=== PATIENT | female | born 1945 | race Caucasian/White ===

== ENCOUNTER 2018-07-29 11:03 | Inpatient (IN) ==
--- NOTE | 2018-07-13 12:41 | Anesthesiology Consultation ---
Date of Service July 13, 2018 Assessment & Plan (1) Encounter for pre-operative examination: Chart Review Chart Review: Acceptable Risk for Surgery and Patient seen in Pre Admission Testing Teaching & Discussion Pre-Anesthesia Teaching/Discussion Notes: Instructed NPO after midnight before surgery,except medications with 15 cc of water. Medication instructions provided according to the PAT guidelines. History Surgery Operation Date: 07/29/18 13:15 Proposed Procedures p L4-l5, L5-S1 Posterior Lumbar Decompression and Interbody Fusion - Anish De La Torre DO Height/Weight Height: 4 ft 11.5 in Weight: 55.1 kg Allergies Allergy/AdvReac Type Severity Reaction Status Date / Time adhesive tape Allergy Unknown Rash Verified 07/06/18 10:35 Medications Home Medications Medication Instructions Recorded Confirmed Last Taken amlodipine 5 mg PO QAM 07/06/18 07/06/18 07/06/18 atorvastatin 20 mg PO PM 07/06/18 07/13/18 07/05/18 gabapentin 400 mg PO TID 07/06/18 07/06/18 07/06/18 lisinopril 10 mg PO QAM 07/06/18 07/06/18 07/06/18 oxybutynin chloride 10 mg PO QPM 07/06/18 07/06/18 07/05/18 Past Medical History Medical History Arthritis CAD (coronary artery disease) MID LAD SERIAL 60% LESIONS PER 2015 CARDIAC CATH (NO APPRECIABLE CHANGE SINCE 2006 PER REPORT) Hiatal hernia Hyperlipidemia Hypertension Urinary incontinence ON OXYBUTYNIN Past Family History Family History Father Family history of throat cancer Past Surgical History Surgical History History of cardiac catheterization 2006, 2014= NO STENTS History of cataract extraction B/L History of colonoscopy History of toe surgery BILAT BIG TOES/ARTHRITIS REMOVED History of tubal ligation Past Anesthesia History No Hx of Anesthesia Complications (EXCEPT PONV X1 ) and No Family Hx of Anesthesia Complications History of PONV Yes (X1 EPISODE) Motion Sickness Screening History of Motion Sickness: No Social History Smoking Status: Never smoker Do You Dip or Chew Tobacco: No Hx Alcohol Use: No Hx Substance Use: No substance use type: does not use Exercise / Class Metabolic Activity II 4-5 Yardwork/Stairs/Walk up hill (USES CANE PRN) Review of Systems Patient denies chest pain, shortness of breath, dyspnea on exertion, cough, wheezing, palpitations. Physical Exam Vital Signs VITALS BP 126/79 P 72 TEMP 98.2 SP02 98%RA RESP 18 Full neck and c-spine range of motion. Full TMJ range of motion. TMD 3 finger breaths Mallampati Score 3 Dentition: intact, several crown on molars Lungs: clear throughout to auscultation Cardiac: regular rate and rhythm, I/ systolic murmur Spine: normal Carotid arteries: negative bruit Extremities: no edema Testing Electrocardiogram Date: 07/13/18 NSR at 66bpm. LAD. NS IVCD. Chest X-Ray Date: 07/13/18 Findings: + NAD There is a air-containing retrocardiac opacity consistent with a hiatal hernia. Cardiac Catheterization Date: 09/03/14 Mid LAD serial 60% lesions (not appreciably changed since 2006 cardiac cath). Medical management recommended. Laboratory Results 07/13/18 12:55 Blood Type A Positive 07/13/18 12:55 Antibody Screen NEGATIVE 07/13/18 12:55 PT 10.6 Seconds (9.0-12.0) 07/13/18 12:55 INR 1.1 (0.9-1.1) 07/13/18 12:55 APTT 24.6 Seconds (21.0-31.0) 07/13/18 12:55 Urine Color Yellow 07/13/18 12:55 Urine Appearance Clear (Clear) 07/13/18 12:55 Urine pH 6.5 (4.5-7.5) 07/13/18 12:55 Ur Specific [place] 1.011 (1.000-1.030) 07/13/18 12:55 Urine Protein Negative (Negative) 07/13/18 12:55 Urine Glucose (UA) Negative (Negative) 07/13/18 12:55 Urine Ketones Negative (Negative) 07/13/18 12:55 Urine Nitrite Negative (Negative) 07/13/18 12:55 Ur Leukocyte Esterase Negative (Negative) 07/13/18 12:55 07/06/18 SODIUM 139 POTASSIUM 4.2 CHLORIDE 99 CO2 28 BUN 16 CREATININE 0.9 GLUCOSE 91
--- NOTE | 2018-07-13 12:52 | PAT Medication Instructions ---
Medication Instructions Date of Service July 13, 2018 Home Medications amlodipine 5 mg PO QAM atorvastatin 40 mg PO PM gabapentin 400 mg PO TID lisinopril 10 mg PO QAM oxybutynin chloride 10 mg PO QPM DO NOT take the morning of surgery lisinopril 10 mg PO QAM Take morning of surgery With a small sip of water, OTHERWISE NOTHING TO EAT OR DRINK AFTER MIDNIGHT: amlodipine 5 mg PO QAM gabapentin 400 mg PO TID Take evening before surgery atorvastatin 40 mg PO PM gabapentin 400 mg PO TID oxybutynin chloride 10 mg PO QPM Other Notes If you have any questions please call us at [phone] or [phone] or [phone] or [phone]
[2018-07-13 13:27] LABS: Basophils # (auto) 0.07 K/uL (0-0.2); Basophils % (auto) 1.2 %; Eosinophils # (auto) 0.11 K/uL (0-0.5); Eosinophils % (auto) 1.9 %; Hemoglobin 12.5 g/dL (12.0-16.0); Immature Granulocytes # (auto) 0.01 K/uL (0.00-0.02); Immature Granulocytes % (auto) 0.2 %; Lymphocytes # (auto) 1.09 K/uL (1.2-3.4); Lymphocytes % (auto) 18.9 %; Mean Corpuscular Hgb Conc 33.8 g/dL (32-36); Mean Corpuscular Volume 93.2 fL (80-100); Mean Platelet Volume 9.4 fL (7.4-10.4); Monocytes # (auto) 0.46 K/uL (0.11-0.59); Neutrophils # (auto) 4.04 K/uL (1.4-6.5); Neutrophils % (auto) 69.8 %; Platelet Count 279 K/uL (130-400); RDW Coefficient of Variation 12.4 % (11.5-14.5); RDW Standard Deviation 42.5 fL (36.4-46.3); Red Blood Count 3.97 M/uL (4.2-5.4); White Blood Count 5.78 K/uL (4.8-10.8)
[2018-07-13 13:39] LABS: Appearance Urine Clear (Clear); Bilirubin Urine Negative (Negative); Color Urine Yellow; Glucose Urine UA Negative (Negative); Ketones Urine Negative (Negative); Leukocyte Esterase Urine Negative (Negative); Nitrite Urine Negative (Negative); Protein Urine Negative (Negative); Specific Gravity Urine 1.011 (1.000-1.030); Urobilinogen Urine Negative (Negative); pH Urine 6.5 (4.5-7.5)
[2018-07-13 13:54] LABS: INR 1.1 (0.9-1.1); Partial Thromboplastin Ratio 0.9; Partial Thromboplastin Time 24.6 Seconds (21.0-31.0); Prothrombin Time 10.6 Seconds (9.0-12.0)
--- NOTE | 2018-07-13 13:54 | XRay Report ---
XR chest Pre-admission PA/Lat CLINICAL HISTORY: Preoperative chest COMPARISON STUDY: No previous studies for comparison. FINDINGS: The cardiac and mediastinal contours are normal. There is no evidence of focal pulmonary co nsolidation. There is no evidence of failure. No pleural effusions are visualized.[ There is a air-co ntaining retrocardiac opacity consistent with a hiatal hernia. IMPRESSION: No active disease in the chest. Electronically signed by: Jaren Martini M.D. 07/13/2018 1:52 PM
[~2018-07-29 11:03] MED LIST: ACETAMINOPHEN 500 MG TAB PO SCH; CeleBREX 200 MG CAP PO SCH; GABAPENTIN 300 MG PO SCH; LR 15ML/HR IV SCH
[2018-07-29] MEDS ORDERED: fentaNYL citrate 100 MCG/2 ML VIAL ONE ×5 (11:22→15:11)
[2018-07-29] MEDS ORDERED: MIDAZOLAM HCL 1 MG/ML 2ML VIAL ONE (11:22)
[2018-07-29] MEDS ORDERED: ROCURONIUM BROMIDE 10 MG/ML 5 ML VIAL ONE (11:23)
[2018-07-29] MEDS ORDERED: DEXAMETHASONE SOD INJ 4 MG/ML VIAL ONE (11:23)
[2018-07-29] MEDS ORDERED: GLYCOPYRROLATE 0.2 MG/ML VIAL ONE (11:23)
[2018-07-29] MEDS ORDERED: LIDOCAINE HCL 2% 2 ML VIAL/AMP(20MG/ML) INFIL ONE (11:23)
[2018-07-29] MEDS ORDERED: NEOSTIGMINE METHYLSULFATE 1 MG/ML 10ML VIAL ONE (11:23)
[2018-07-29] MEDS ORDERED: ONDANSETRON INJ 2 MG/ML 2 ML VIAL ONE (11:23)
[2018-07-29] MEDS ORDERED: PROPOFOL IV EMULSION 10 MG/ML 20 ML VIAL IV ONE (11:23)
[2018-07-29] MEDS ORDERED: HYDROmorphone INJ 2 MG/ML SYR/VIAL ONE (11:26)
--- NOTE | 2018-07-29 12:34 | History & Physical Bridge Note ---
Date of Service July 29, 2018 History & Physical Bridge Note I have examined the patient, reviewed the History & Physical and in the interval since the performance of the History & Physical I have noted the following changes of clinical significance: no changes noted
--- NOTE | 2018-07-29 12:35 | History & Physical Report ---
Date of Service July 29, 2018 Assessment & Plan (1) Neurogenic claudication due to lumbar spinal stenosis: Posterior lumbar decompression fusion and interbody fusion L4-5 L5-S1 Present on Admission?: Yes History of Present Illness Chief Complaint: Back and leg pain Primary Care Provider: Ellie Hollingsworth This is a 73-year-old female who presents with chronic persistent back and leg pain. After failing extensive course of nonoperative care is here for surgical intervention. Allergies Allergy/AdvReac Type Severity Reaction Status Date / Time adhesive tape Allergy Unknown Rash Verified 07/06/18 10:35 Home Medications Home Medications Medication Instructions Recorded Confirmed Type amlodipine 5 mg PO QAM 07/06/18 07/06/18 History atorvastatin 20 mg PO PM 07/06/18 07/13/18 History gabapentin 400 mg PO TID 07/06/18 07/06/18 History lisinopril 10 mg PO QAM 07/06/18 07/06/18 History oxybutynin chloride 10 mg PO QPM 07/06/18 07/06/18 History Past Med/Surg History Family History Father Family history of throat cancer Social History Current Living Situation: Spouse Other Information That Helps Us Care for You: No Feels Safe at Home: Yes Smoking Status: Never smoker Do You Dip or Chew Tobacco: No Hx Alcohol Use: No Hx Substance Use: No Beliefs That Will Affect Care: Gnosticist Gnosticist Beliefs: HINDU Preferred Language: Romansh Communication Ability: Effective Suture Winder Hand Required: No Physical Exam 2 Vital Signs (Past 24 Hours): Last Vital Signs Temp 36.7 C 07/29/18 11:44 Pulse 76 07/29/18 11:44 Resp 18 07/29/18 11:44 BP 150/80 H 07/29/18 11:44 Pulse Ox 98 07/29/18 11:44 Results & Data Medications Administered Acetaminophen (Tylenol) 1,000 mg PO PREOP [place] Stop: 07/29/18 18:00 Last Admin: 07/29/18 11:50 Dose: 1,000 mg Celecoxib (Celebrex) 200 mg PO PREOP [place] Stop: 07/29/18 18:00 Last Admin: 07/29/18 11:50 Dose: 200 mg Gabapentin (Neurontin) 300 mg PO PREOP [place] Stop: 07/29/18 18:00 Last Admin: 07/29/18 11:50 Dose: 300 mg Lactated Ringer's (Lr) 1,000 mls @ 15 mls/hr IV .Q24H [place] Stop: 07/30/18 05:59 Last Infusion: 07/29/18 12:21 Dose: Admin: 07/29/18 12:20 Dose: 15 mls/hr
[2018-07-29] MEDS ORDERED: ePHEDrine sulfate 50 MG/ML AMP IV PRN (12:45)
[2018-07-29] MEDS ORDERED: PROMETHAZINE HCL 6.25 MG in SODIUM CHLORIDE 0.9% 50 ML IV PRN (12:45)
[2018-07-29] MEDS ORDERED: fentaNYL citrate 100 MCG/2 ML VIAL IV PRN (12:45)
[2018-07-29] MEDS ORDERED: ATROPINE SULFATE 0.1 MG/ML 10ML SYR IV PRN (12:45)
[2018-07-29] MEDS ORDERED: ONDANSETRON INJ 2 MG/ML 2 ML VIAL IV PRN ×2 (12:45→17:14)
[2018-07-29] MEDS ORDERED: BACITRACIN INJ 50,000 UNIT VIAL ONE (12:47)
[2018-07-29] MEDS ORDERED: BUPIVACAINE/EPINEPHRINE 0.5% MPF 1:200,000 30 ML VIAL ONE (12:47)
[2018-07-29] MEDS: CEFAZOLIN 1000MG 1,000 MG/7.5 ML SYR IV SCH ×3 (13:00→21:11)
[2018-07-29] MEDS ORDERED: FLOSEAL HEMOSTATIC MATRIX 10ML TOP ONE (13:59)
[2018-07-29] MEDS ORDERED: ePHEDrine sulfate 50 MG/ML SYR ONE (14:41)
[2018-07-29] MEDS ORDERED: PHENYLEPHRINE 100MCG/ML 5ML SYR ONE (14:41)
[2018-07-29] MEDS ORDERED: KETOROLAC 30 MG/ML VIAL ONE (14:41)
[2018-07-29] MEDS ORDERED: PHENYLEPHRINE HCL 10 MG/ML VIAL ONE (14:43)
--- NOTE | 2018-07-29 15:12 | Operative Report ---
Post Operative Report Pre & Post Diagnosis Operation Date: 07/29/18 13:15 Pre-Op Diagnosis: Lumbar Spinal Stenosis with Neurogenic Claudication Post-Op Diagnosis: Lumbar Spinal Stenosis with Neurogenic Claudication Procedure Operation Date: 07/29/18 13:15 Actual Procedures #1 lumbar decompression bilateral medial facetectomies foraminotomies L3-4 L4-5 L5-S1. #2 posterior spinal fusion L3-4 L4-5 L5-S1. #3 placement posterior segmental instrumentation L4-5 L5-S1. #4 interbody fusion L4-5 per #5 placement of peek cage 9 x 22 mm at 045. #6 placement of local autograft in the posterior lateral gutters. #7 placement infuse collagen sponge, mass graft in the posterior gutters and ostial amp in the interbody space. Surgeon Anish De La Torre, DO Engine Lathe Set Up Operator Tool Warner Field Estimated Blood Loss 425 Findings Consistent with Post-Op Diagnosis Specimens None Description of Procedure Patient was met with preoperatively case discussed all questions addressed. After informed consent obtained patient was taken to the operative suite underwent intubation and placed in a prone position the Wes table on top of the Erick frame. All bony prominences well-padded eyes inspected to ensure no external pressure placed upon the bed at this point the lumbar spine was prepped and draped in normal sterile fashion. Sharp dissection with the assistance of Bovie cautery was performed down to and exposing the lamina and transverse of L3-L4-L5 and sacral ala bilaterally. From a caudal cephalad fashion complete laminectomy L5 L4 and L3 was performed addressing severe lateral recess and foraminal stenosis as well as evidence for lateral disc herniation L4-5 on the right. Complete decompression pedicle screws were placed in L4-L5 and S1 levels bilaterally with assistance of fluoroscopy. Process gina was placed. Through a transforaminal approach on the right complete discectomy of L4-[address] coated to subcortical bleeding bone and a 9 x 22 mm peek cage filled with osteo-amp bone graft tapped in position. Rods were then locked in final position bilaterally. The transverse process of L3-L4-L5 to subcortical bleeding bone. Infuse collagen sponge mass graft local autograft placed in the posterior gutters. 15 round YRIS drain inserted. The incision was then closed with 1 Vicryl fascia 2-0 Vicryl subtenons in 4 Monocryl for final skin closure. Steri-Strip sterile dressings placed. Patient will continue to PACU stable disc. Please note Warner Field present throughout the entire procedure involved in patient positioning complex portions of the surgery and final skin closure. I attest to the content of the Intraoperative Record and any orders documented therein. Any exceptions are noted below.
[2018-07-29] MEDS ORDERED: ESMOLOL HCL INJ 10 MG/ML 10ML VIAL IV ONE (15:28)
--- NOTE | 2018-07-29 15:35 | Fluoroscopy Report ---
FL lumbar spine 2-3V CLINICAL HISTORY: L4-L5 L5-S1 POSTERIOR LUMBAR DECOMPRESSION AND FUSION COMPARISON STUDY: None FLUOROSCOPY TIME: 2 minutes 3 seconds NUMBER OF FLUOROSCOPIC IMAGES: 3 FINDINGS: Fluoroscopic assistance for laminectomy and fusion of the low lumbar spine IMPRESSION: The above report was generated using voice recognition software. It may contain grammatical, syntax or spelling errors. Electronically signed by: Chris Orozco M.D. 07/29/2018 3:33 PM
[2018-07-29] MEDS ORDERED: LARYING-O-JET KIT (LTA) ONE (15:38)
[2018-07-29] MEDS ORDERED: ALBUMIN HUMAN 5% 12.5 GM/250 ML VIAL IV ONE (15:39)
--- NOTE | 2018-07-29 16:10 | Anesthesiology Progress Note ---
Date of Service July 29, 2018 Anesthesia Post Procedure Vital Signs Vital Signs: Temp Pulse Pulse Resp BP Pulse Ox 07/29/18 16:00 93 H 15 129/69 100 07/29/18 15:50 87 12 127/70 100 07/29/18 15:40 94 H 12 137/75 100 07/29/18 15:33 36.2 C L 93 H 16 135/79 100 07/29/18 11:44 36.7 C 76 18 150/80 H 98 Pain Intensity Lower Back: Pain Intensity: 0 Notes Mental Status: alert / awake / arousable Patient Amnestic to Procedure: Yes Nausea / Vomiting: adequately controlled Pain: adequately controlled Airway Patency, RR, SpO2: stable & adequate BP & HR: stable & adequate Hydration State: stable & adequate Anesthetic Complications: no major complications apparent
[2018-07-29] MEDS ORDERED: MAGNESIUM HYDROXIDE SUSP 30 ML UDC PO PRN (17:14)
[2018-07-29] MEDS ORDERED: TRAMADOL HCL 50 MG TABLET PO PRN (17:14)
[2018-07-29] MEDS ORDERED: PROMETHAZINE HCL 12.5 MG in SODIUM CHLORIDE 0.9% 50 ML IV PRN (17:14)
[2018-07-29] MEDS ORDERED: LACTATED RINGER'S 1,000 ML IV SCH (17:14)
[2018-07-29] MEDS ORDERED: LORazepam 0.5 MG/1 ML VIAL IV PRN (17:14)
[2018-07-29] MEDS ORDERED: ACETAMINOPHEN 1,000 MG/100 ML VIAL IV PRN (17:14)
[2018-07-29] MEDS ORDERED: OXYCODONE HCL IR 5 MG TAB (IMMEDIATE RELEASE) PO PRN (17:14)
[2018-07-29] MEDS ORDERED: LORazepam 0.5 MG TAB PO PRN (17:14)
[2018-07-29] MEDS ORDERED: DO NOT ADMINISTER FLU VACCINE PRN (17:14)
[2018-07-29] MEDS ORDERED: METOCLOPRAMIDE HCL INJ 5 MG/ML 2 ML VIAL IV PRN (17:14)
[2018-07-29] MEDS ORDERED: HYDROmorphone INJ 0.5 MG/0.5 ML SYR IV PRN (17:14)
[2018-07-29] MEDS ORDERED: ONDANSETRON 4 MG TAB PO PRN (17:14)
[2018-07-29] MEDS ORDERED: SOD PHOSPHATE/SOD BIPHOSPHATE ENEMA 132 ML BTL PR PRN (17:14)
[2018-07-29] MEDS ORDERED: BISACODYL 10 MG SUPP PR PRN (17:14)
[2018-07-29] MEDS ORDERED: ALUMINUM/MAGNESIUM SUSP 30 ML UDC PO PRN (17:14)
[2018-07-29] MEDS ORDERED: DO NOT ADMINISTER PNEUMOCOCCAL VACCINE PRN (17:14)
[2018-07-29] MEDS ORDERED: FAMOTIDINE 20 MG TAB PO PRN (17:14)
--- NOTE | 2018-07-29 19:34 | Hospitalist Consultation ---
Date of Consultation July 29, 2018 Assessment & Plan (1) Neurogenic claudication due to lumbar spinal stenosis: - POD#0, status post L4-L5, L5-S1 decompression fusion by Dr. De La Torre - activity and wound care orders as per ortho - pain control with bowel regimen - PT/OT - monitor H/H for acute blood loss anemia and transfuse blood products PRN - EBL 425 cc (2) Hypertension: -BP controlled, continue amlodipine and lisinopril (3) CAD (coronary artery disease): -Stable, no reports chest pain -Continue statin, resume aspirin when okay with spine orthopedics (4) DVT prophylaxis: -Teds/SCDs as per spine orthopedics Thank you for this consultation. We will follow the patient with you during their hospital stay. You can reach a member of the [facility] Hospitalist Team 11/01 via pager @ . Supervising Physician Co-Signing Physician Notes Attending Addendum: The patient was seen and examined She is a 73-year-old female with significant past medical history of hypertension, hyperlipidemia and nonobstructive CAD with status post lumbar decompression and fusion Complains of minimal pain at the lower back Denies any other symptoms On examination No apparent distress at rest Hemodynamically stable Unremarkable physical exam Labs and imaging studies reviewed Agree with assessment and plan as outlined above by Ana Paula Grace History of Present Illness Reason for Consultation: Postop medical management Requesting Physician: Dr. De La Torre Attending Physician: Dr. Grace History of Present Illness 73-year-old female who is status post L4-L5, L5-S1 decompression and fusion today by Dr. De La Torre. Postoperatively, the patient is doing well. She reports her pain is well controlled. She denies any numbness or tingling to the bilateral lower extremities. No chest pain or shortness of breath. She denies lightheadedness and dizziness. No abdominal pain or nausea. Bedoya catheter is in place draining clear yellow urine. Allergies Allergy/AdvReac Type Severity Reaction Status Date / Time adhesive tape Allergy Unknown Rash Verified 07/06/18 10:35 Home Medications Home Medications Medication Instructions Recorded Confirmed Type amlodipine 5 mg PO QAM 07/06/18 07/06/18 History atorvastatin 20 mg PO PM 07/06/18 07/13/18 History gabapentin 400 mg PO TID 07/06/18 07/06/18 History lisinopril 10 mg PO QAM 07/06/18 07/06/18 History oxybutynin chloride 10 mg PO QPM 07/06/18 07/06/18 History aspirin 81 mg PO DAILY 07/29/18 07/29/18 History ferrous sulfate 325 mg PO BID 07/29/18 07/29/18 History glucosamine sulfate [Glucosamine] 500 mg PO BID 07/29/18 07/29/18 History Patient History Medical History Hiatal hernia (Chronic) Microcytic anemia (Chronic) Hypertension (Chronic) CAD (coronary artery disease) (Chronic) cath 2014 showed nonobstructive CAD Dyslipidemia (Chronic) Arthritis (Inactive) CAD (coronary artery disease) (Inactive) MID LAD SERIAL 60% LESIONS PER 2015 CARDIAC CATH (NO APPRECIABLE CHANGE SINCE 2006 PER REPORT) Hypertension (Inactive) Urinary incontinence (Inactive) ON OXYBUTYNIN Surgical History History of cardiac catheterization (Chronic) 2006, 2014= NO STENTS History of tubal ligation (Chronic) History of toe surgery (Chronic) BILAT BIG TOES/ARTHRITIS REMOVED History of cataract extraction (Chronic) B/L History of colonoscopy (Inactive) Family History Father Family history of throat cancer Social History Current Living Situation: Spouse Other Information That Helps Us Care for You: No Feels Safe at Home: Yes Smoking Status: Never smoker Do You Dip or Chew Tobacco: No Hx Alcohol Use: No Hx Substance Use: No Beliefs That Will Affect Care: Yarsanism Yarsanism Beliefs: ROMAN CATHOLIC Preferred Language: Thai Communication Ability: Effective Assembly Worker Required: No Review of Systems ROS per HPI, all other systems reviewed and negative Physical Exam 2 Vital Signs (Past 24 Hours): Last Vital Signs Temp 36.4 C L 07/29/18 18:35 Pulse 95 H 07/29/18 18:35 Resp 16 07/29/18 18:35 BP 102/63 07/29/18 18:35 Pulse Ox 100 07/29/18 18:35 Constitutional: WD/WN, vitals as above Eyes: PERRL, conjunctivae normal, anicteric sclerae ENMT: external ear and nose normal, oropharynx normal Respiratory: normal respiratory effort, lungs clear to auscultation Cardiovascular: Rate/Rhythm: regular rate and regular rhythm Vessels: normal peripheral pulses Extremities: no edema Gastrointestinal (Abdomen): normal bowel sounds, soft, nontender, no hepatosplenomegaly Musculoskeletal: S/P back surgery, pedal pushes and pulls strong bilaterally Skin: no rashes, warm and dry Neurologic: PERRL, EOMI, accommodation nl, no face palsy, no dysarthria Psychiatric: A+Ox3, euthymic affect Genitourinary: Bedoay in place draining clear yellow urine
[2018-07-29] MEDS: ATORVASTATIN 20 MG TAB PO SCH (21:11)
[2018-07-29] MEDS: DOCUSATE SODIUM/SENNA 50/8.6MG TAB PO SCH (21:11)
[2018-07-29] MEDS: OXYBUTYNIN CHLORIDE XL 5 MG TABCR PO SCH (21:11)
[2018-07-29] MEDS: FERROUS SULFATE 325 MG TAB PO SCH (21:12)
[2018-07-29] MEDS: GABAPENTIN 400 MG CAP PO SCH (21:12)
[2018-07-30] MEDS: ACETAMINOPHEN 500 MG TAB PO PRN (03:34)
[2018-07-30] MEDS: POLYETHYLENE (MIRALAX) 17 GM PACK PO SCH ×4 (05:26→23:22)
[2018-07-30] MEDS: CEFAZOLIN 1000MG 1,000 MG/7.5 ML SYR IV SCH (05:26)
[2018-07-30 06:07] LABS: Hematocrit (blood only) 25.1 % (37-47); Hemoglobin 8.6 g/dL (12.0-16.0); Immature Granulocytes # (auto) 0.02 K/uL (0.00-0.02); Immature Granulocytes % (auto) 0.2 %; Lymphocytes # (auto) 0.47 K/uL (1.2-3.4); Lymphocytes % (auto) 4.5 %; Mean Corpuscular Hgb Conc 34.3 g/dL (32-36); Mean Corpuscular Volume 91.9 fL (80-100); Mean Platelet Volume 8.7 fL (7.4-10.4); Monocytes # (auto) 0.66 K/uL (0.11-0.59); Monocytes % (auto) 6.3 %; Neutrophils # (auto) 9.25 K/uL (1.4-6.5); Platelet Count 210 K/uL (130-400); RDW Coefficient of Variation 12.3 % (11.5-14.5); RDW Standard Deviation 41.8 fL (36.4-46.3); Red Blood Count 2.73 M/uL (4.2-5.4)
[2018-07-30 06:42] LABS: BUN Creatinine Ratio 14.2 (10-20); Calcium 8.7 mg/dl (8.5-10.1); Creatinine Clr Calc Pharmacy 49.9 ml/min; Est GFR (African American) 84.2; Est GFR (Non-African American) 72.6; Potassium 4.6 mmol/L (3.5-5.1)
[2018-07-30 06:50] LABS: RBC Morphology Unremarkable
[2018-07-30] MEDS: AMLODIPINE BESYLATE 5 MG TAB PO SCH (08:47)
[2018-07-30] MEDS: FERROUS SULFATE 325 MG TAB PO SCH ×2 (08:48→20:19)
[2018-07-30] MEDS: GABAPENTIN 400 MG CAP PO SCH ×3 (08:48→20:19)
[2018-07-30] MEDS: LISINOPRIL 10 MG TAB PO SCH (08:48)
--- NOTE | 2018-07-30 08:51 | Anesthesiology Progress Note ---
Date of Service July 30, 2018 Anesthesia Post Procedure Vital Signs Vital Signs: Temp Pulse Pulse Pulse Resp BP Pulse Ox 07/30/18 06:51 36.9 C 75 18 94/56 L 96 07/30/18 03:40 36.6 C 89 16 94/54 L 96 07/29/18 22:55 36.4 C L 97 H 16 99/62 L 97 07/29/18 19:40 36.2 C L 89 15 106/62 95 07/29/18 18:35 36.4 C L 95 H 16 102/63 100 07/29/18 17:38 89 16 127/74 100 07/29/18 17:05 36.3 C L 89 16 112/67 100 07/29/18 16:40 36.4 C L 89 14 122/67 100 07/29/18 16:20 83 12 117/66 100 07/29/18 16:10 36.2 C L 86 12 121/68 100 07/29/18 16:00 93 H 15 129/69 100 07/29/18 15:50 87 12 127/70 100 07/29/18 15:40 94 H 12 137/75 100 07/29/18 15:33 36.2 C L 93 H 16 135/79 100 07/29/18 11:44 36.7 C 76 18 150/80 H 98 Pain Intensity Lower Back: Pain Intensity: 0 Notes Mental Status: alert / awake / arousable Patient Amnestic to Procedure: Yes Nausea / Vomiting: adequately controlled Pain: adequately controlled Airway Patency, RR, SpO2: stable & adequate BP & HR: stable & adequate Hydration State: stable & adequate Anesthetic Complications: no major complications apparent
--- NOTE | 2018-07-30 10:22 | Orthopedic Progress Note ---
Date of Service July 30, 2018 Assessment & Plan (1) Acute blood loss as cause of postoperative anemia: This time we will continue physical therapy as tolerated monitor YRIS output and hematocrit. Hopefully discharge home early next week. Present on Admission?: Yes Subjective Patient states her back pain is controlled. Right leg symptoms are markedly improved. Physical Exam 2 Vital Signs (Past 24 Hours): Last Vital Signs Temp 36.9 C 07/30/18 06:51 Pulse 75 07/30/18 06:51 Resp 18 07/30/18 06:51 BP 94/56 L 07/30/18 06:51 Pulse Ox 96 07/30/18 06:51 Physical Exam: Patient is good strength testing appears comfortable.
--- NOTE | 2018-07-30 15:50 | Hospitalist Progress Note ---
Date of Service July 30, 2018 Assessment & Plan (1) Neurogenic claudication due to lumbar spinal stenosis: - POD#1, status post L4-L5, L5-S1 decompression fusion by Dr. De La Torre - activity and wound care orders as per ortho - pain control with bowel regimen - PT/OT - EBL 425 cc -Hemoglobin dropped to 8.6 from 12.5 before the surgery -Could be secondary to dilution and blood loss -We will repeat CBC tomorrow (2) Hypertension: -BP controlled, continue amlodipine and lisinopril (3) CAD (coronary artery disease): -Stable, no reports chest pain -Continue statin, resume aspirin when okay with spine orthopedics -Denies any acute symptoms (4) DVT prophylaxis: -Teds/SCDs as per spine orthopedics Thank you for this consultation. We will follow the patient with you during their hospital stay. You [facility] a [facility] via pager @ . Subjective She is a 73-year-old female with significant past medical history of hypertension, hyperlipidemia and nonobstructive CAD with status post lumbar decompression and fusion 07/30 Patient was seen and examined in medical floor in presence of the She has been feeling a lot better and she is out of bed on a chair Minimal pain at the back Denies any other symptoms Physical Exam 2 Vital Signs (Past 24 Hours): Last Vital Signs Temp 36.6 C 07/30/18 11:07 Pulse 72 07/30/18 11:07 Resp 18 07/30/18 11:07 BP 102/63 07/30/18 11:07 Pulse Ox 99 07/30/18 14:03 Constitutional: WD/WN, vitals as above Eyes: PERRL, conjunctivae normal, anicteric sclerae ENMT: external ear and nose normal, oropharynx normal Respiratory: normal respiratory effort, lungs clear to auscultation Cardiovascular: Rate/Rhythm: regular rate and regular rhythm Heart Sounds: + murmur (2/6 systolic murmur over precordium) Vessels: normal peripheral pulses Extremities: no edema Gastrointestinal (Abdomen): normal bowel sounds, soft, nontender, no hepatosplenomegaly Skin: no rashes, warm and dry Neurologic: PERRL, EOMI, accommodation nl, no face palsy, no dysarthria Psychiatric: A+Ox3, euthymic affect Results & Data Laboratory Results Short CBC 07/30/18 Range/Units 05:47 WBC 10.40 (4.8-10.8) K/uL Hgb 8.6 L (12.0-16.0) g/dL Hct 25.1 L (37-47) % Plt Count 210 (130-400) K/uL BMP 07/30/18 05:47 Sodium 134 L Potassium 4.6 Chloride 100 Carbon Dioxide 28 BUN 11 Creatinine 0.80 Glucose 122 H Calcium 8.7 Medications Administered Current Inpatient Medications Acetaminophen (Tylenol) 1,000 mg PO Q8H PRN PRN Reason: MILD Pain Rating 1,2,3 Stop: 08/28/18 17:13 Last Admin: 07/30/18 03:34 Dose: 1,000 mg Al Hydrox/Mg Hydrox/Simethicone (Maalox) 30 ml PO Q6H PRN PRN Reason: Dyspepsia Stop: 08/28/18 17:13 Amlodipine Besylate (Norvasc) 5 mg PO QAM [place] Stop: 08/29/18 08:59 Last Admin: 07/30/18 08:47 Dose: 5 mg Atorvastatin Calcium (Lipitor) 20 mg PO PM G[place] Stop: 08/28/18 20:59 Last Admin: 07/29/18 21:11 Dose: 20 mg Bisacodyl (Dulcolax) 10 mg OK DAILY PRN PRN Reason: Constipation Stop: 08/28/18 17:13 Diphenhydramine HCl (Benadryl Capsule) 25 mg PO Q6H PRN PRN Reason: Allergic Rhinitis/Insomnia Stop: 08/28/18 17:13 Famotidine (Pepcid) 20 mg PO Q12H PRN PRN Reason: Dyspepsia Stop: 08/28/18 17:13 Ferrous Sulfate (Feosol) 325 mg PO BID G[place] Stop: 08/28/18 20:59 Last Admin: 07/30/18 08:48 Dose: 325 mg Gabapentin (Neurontin) 400 mg PO TID [place] Stop: 08/28/18 20:59 Last Admin: 07/30/18 14:10 Dose: 400 mg Hydromorphone HCl (Dilaudid) 0.5 - 1 mg IV Q3H PRN PRN Reason: Pain Stop: 08/12/18 17:13 Hydroxyzine HCl (Vistaril) 25 mg PO Q8H PRN PRN Reason: Anxiety Stop: 08/28/18 17:13 Acetaminophen (Ofirmev) 1,000 mg in 100 mls @ 400 mls/hr IV Q8H PRN PRN Reason: MILD Pain Rating 1,2,3 Stop: 08/28/18 17:13 Lorazepam (Ativan) 0.5 mg in 1 mls @ 0.5 mls/min IV Q8H PRN PRN Reason: Sedation/Anxiety Stop: 08/28/18 17:13 Promethazine HCl 12.5 mg/ (Sodium Chloride) 50.5 mls @ 204 mls/hr IV Q6H PRN PRN Reason: Nausea &/or Vomiting Stop: 08/28/18 17:13 Lisinopril (Zestril) 10 mg PO QAM [facility] Stop: 08/29/18 08:59 Last Admin: 07/30/18 08:48 Dose: 10 mg Lorazepam (Ativan) 0.5 mg PO Q8H PRN PRN Reason: Sedation/Anxiety Stop: 08/28/18 17:13 Magnesium Hydroxide (Milk Of Magnesia) 30 ml PO DAILY PRN PRN Reason: Constipation Stop: 08/28/18 17:13 Metoclopramide HCl (Reglan) 10 mg IV Q6H PRN PRN Reason: Nausea &/or Vomiting Stop: 08/28/18 17:13 Miscellaneous (Pneumococcal Vacc, Do Not Administer) 1 ea N/A PRN PRN PRN Reason: Notification Stop: 08/28/18 17:13 Miscellaneous (Flu Vaccine, Do Not Administer) 1 ea N/A PRN PRN PRN Reason: Notification Stop: 08/28/18 17:13 Ondansetron HCl (Zofran) 4 mg IV Q6H PRN PRN Reason: Nausea &/or Vomiting Stop: 08/28/18 17:13 Ondansetron HCl (Zofran) 4 mg PO Q6H PRN PRN Reason: Nausea Stop: 08/28/18 17:13 Oxybutynin Chloride (Ditropan Xl) 10 mg PO QPM [place] Stop: 08/28/18 20:59 Last Admin: 07/29/18 21:11 Dose: 10 mg Oxycodone HCl (Roxicodone Immediate Rel) 5 - 10 mg PO Q4H PRN PRN Reason: Moderate-Severe Pain Stop: 08/12/18 17:13 Polyethylene Glycol (Miralax Powder Packet) 17 gm PO Q6 G[place] Stop: 08/29/18 05:59 Last Admin: 07/30/18 12:14 Dose: 17 gm Senna/Docusate Sodium (Senokot S) 2 tab PO HS G[place] Stop: 08/28/18 20:59 Last Admin: 07/29/18 21:11 Dose: 2 tab Sodium Biphosphate/Sodium Phosphate (Fleet Enema) 132 ml OK ONE PRN PRN Reason: Constipation Stop: 08/28/18 17:13 Tramadol HCl (Ultram) 50 - 100 mg PO Q4H PRN PRN Reason: Moderate-Severe pain Stop: 08/28/18 17:13
[2018-07-30] MEDS: ATORVASTATIN 20 MG TAB PO SCH (20:19)
[2018-07-30] MEDS: DOCUSATE SODIUM/SENNA 50/8.6MG TAB PO SCH (20:19)
[2018-07-30] MEDS: OXYBUTYNIN CHLORIDE XL 5 MG TABCR PO SCH (20:19)
[2018-07-31] MEDS: POLYETHYLENE (MIRALAX) 17 GM PACK PO SCH ×3 (05:27→17:39)
[2018-07-31 06:02] LABS: Eosinophils # (auto) 0.07 K/uL (0-0.5); Eosinophils % (auto) 0.9 %; Hematocrit (blood only) 24.4 % (37-47); Hemoglobin 8.3 g/dL (12.0-16.0); Immature Granulocytes # (auto) 0.01 K/uL (0.00-0.02); Immature Granulocytes % (auto) 0.1 %; Mean Corpuscular Volume 92.8 fL (80-100); Mean Platelet Volume 8.8 fL (7.4-10.4); Monocytes # (auto) 0.92 K/uL (0.11-0.59); Monocytes % (auto) 11.7 %; Neutrophils # (auto) 5.75 K/uL (1.4-6.5); Neutrophils % (auto) 73.3 %; Platelet Count 219 K/uL (130-400); RDW Coefficient of Variation 12.6 % (11.5-14.5); RDW Standard Deviation 42.8 fL (36.4-46.3); Red Blood Count 2.63 M/uL (4.2-5.4); White Blood Count 7.85 K/uL (4.8-10.8)
[2018-07-31 06:28] LABS: RBC Morphology Unremarkable
[2018-07-31] MEDS: FERROUS SULFATE 325 MG TAB PO SCH ×2 (08:54→20:46)
[2018-07-31] MEDS: LISINOPRIL 10 MG TAB PO SCH (08:54)
[2018-07-31] MEDS: GABAPENTIN 400 MG CAP PO SCH ×3 (08:54→20:46)
[2018-07-31] MEDS: AMLODIPINE BESYLATE 5 MG TAB PO SCH (08:54)
--- NOTE | 2018-07-31 10:56 | Orthopedic Progress Note ---
Date of Service July 31, 2018 Assessment & Plan (1) Neurogenic claudication due to lumbar spinal stenosis: At this time will continue physical therapy today. Advance her bowel regimen. Monitor YRIS output. Anticipate discharge home tomorrow. Present on Admission?: Yes Subjective Back and leg pain is markedly improved. Physical Exam 2 Vital Signs (Past 24 Hours): Last Vital Signs Temp 36.7 C 07/31/18 06:50 Pulse 66 07/31/18 06:50 Resp 18 07/31/18 06:50 BP 103/62 07/31/18 06:50 Pulse Ox 93 07/31/18 06:50 Physical Exam: Patient is sitting in a chair at bedside. She is excellent strength testing. Appears comfortable.
[2018-07-31] MEDS: DOCUSATE SODIUM/SENNA 50/8.6MG TAB PO SCH (17:39)
--- NOTE | 2018-07-31 18:45 | Hospitalist Progress Note ---
Date of Service July 31, 2018 Assessment & Plan (1) Neurogenic claudication due to lumbar spinal stenosis: status post L4-L5, L5-S1 decompression fusion by Dr. De La Torre Hg remains at 8.3 continue to monitor Hg BP on the lower side, systolic 90s hold Lisinopril monitor BP (2) Hypertension: BP on the lower side, systolic 90s hold Lisinopril monitor BP (3) CAD (coronary artery disease): no cardiac symptoms resume ASA when hemostasis stable as per Dr. De La Torre (4) DVT prophylaxis: -Teds/SCDs as per spine orthopedics Thank you for this consultation. We will follow the patient with you during their hospital stay. You can reach a [facility] via pager @ . Subjective ff up for s/p back surgery seen resting in chair, having dinner states she feels fine overall back pain well controlled denies dizziness, chest pain, palpitations, nausea no other symptoms Physical Exam 2 Vital Signs (Past 24 Hours): Last Vital Signs Temp 36.8 C 07/31/18 15:15 Pulse 82 07/31/18 15:15 Resp 16 07/31/18 15:15 BP 97/60 L 07/31/18 15:15 Pulse Ox 97 07/31/18 15:15 Physical Exam: General- oriented x 3, not in distress, speaks in sentences with no effort or accessory muscle use Eyes- anicteric Neck- no JVD Lungs- clear breath sounds bilaterally, no rales/wheezes Heart- normal rate, regular rhythm; no murmurs Abdomen- normal bowel sounds, nondistended, soft, nontender Back- dressing in place: no bleeding, discharge, drain in place with serosanguinous output Extremities- no pretibial edema, no calf tenderness Neuro- alert, oriented x 3; no gross focal neurologic deficits Skin- warm & dry Results & Data Laboratory Results Laboratory Results - last 24 hr 07/31/18 05:29 WBC 7.85 RBC 2.63 L Hgb 8.3 L Hct 24.4 L MCV 92.8 MCH 31.6 MCHC 34.0 RDW Std Deviation 42.8 RDW Coeff of Sonja 12.6 Plt Count 219 MPV 8.8 Immature Gran % (Auto) 0.1 Neut % (Auto) 73.3 Lymph % (Auto) 14.0 [place] % (Auto) 11.7 Eos % (Auto) 0.9 Baso % (Auto) 0.0 Immature Gran # (Auto) 0.01 Neut # (Auto) 5.75 Lymph # (Auto) 1.10 L [place] # (Auto) 0.92 H Eos # (Auto) 0.07 Baso # (Auto) 0.00 RBC Morphology Unremarkable
[2018-07-31] MEDS: OXYBUTYNIN CHLORIDE XL 5 MG TABCR PO SCH (20:45)
[2018-07-31] MEDS: ACETAMINOPHEN 500 MG TAB PO PRN (20:46)
[2018-07-31] MEDS: ATORVASTATIN 20 MG TAB PO SCH (20:46)
[2018-08-01] MEDS ORDERED: Nursing to Pharmacy Communication ONE (00:22)
[2018-08-01] MEDS: POLYETHYLENE (MIRALAX) 17 GM PACK PO SCH (00:44)
[2018-08-01] MEDS: ACETAMINOPHEN 500 MG TAB PO PRN (07:02)
[2018-08-01] MEDS: FERROUS SULFATE 325 MG TAB PO SCH (08:18)
[2018-08-01] MEDS: AMLODIPINE BESYLATE 5 MG TAB PO SCH (08:19)
[2018-08-01] MEDS: GABAPENTIN 400 MG CAP PO SCH (08:19)
--- NOTE | 2018-08-01 10:45 | Discharge Summary ---
Date of Service August 01, 2018 Admission HPI Per Admitting Provider This is a 73-year-old female who presents with chronic persistent back and leg pain. After failing extensive course of nonoperative care is here for surgical intervention. Principal Diagnosis Lumbar spinal stenosis with neurogenic claudication Discharge Data Allergies Allergy/AdvReac Type Severity Reaction Status Date / Time adhesive tape Allergy Unknown Rash Verified 07/06/18 10:35 Consultations 07/29/18 17:14 Consult Case Management - Discharge Planning Routine Consult Hospitalist Routine Procedures Performed Operation Date: 07/29/18 13:15 Actual Procedures p L4-L5, L5-S1 Posterior Lumbar Decompression and Interbody Fusion L4-L5(Not Applicable) - Anish De La Torre DO Ordered Studies 07/29/18 13:15 FL fluoroscopy <1hr Routine FL lumbar spine 2-3V Routine Hospital Course (1) Neurogenic claudication due to lumbar spinal stenosis: Patient underwent a lumbar decompression fusion tolerated as well as taken the orthopedic floor postoperative. Postop day 1 leg symptoms markedly improved she progressed through postop day #2 YRIS drain decreasing appropriately. Ambulating well. Subsequently discharged home on postop day # 3. Discharge orders and instructions found in the chart for further review. Total Time Total Time Spent Total Time Spent (In Minutes): Not applicable Discharge Plan Discharge Items Patient Disposition: Home - Self-Care Reason For Visit: LUMBAR SPINAL STENOSIS W/NEUROGENIC CLAUDICATION Discharge Diagnosis: Lumbar spinal stenosis with neurogenic claudication Activity: Per 'Additional Instructions' section Non-emergency contact: Primary Care Provider Call non-emergency contact if: you have any medication questions Follow-up/Referrals: Ellie Hollingsworth PA-C [Primary Care Provider] - Diet: Regular Addtl Provider Instructions: ACTIVITY RECOMMENDATIONS: SELF CARE INSTRUCTIONS AFTER THORACIC/LUMBAR FUSIONS 1. You may walk to your tolerance. It is good exercise for your legs and back. Expect some back and intermittent leg aches and pains. 2. You may perform "counter-top" level activities (make a sandwich, marva with a project, etc.). 3. No bending or lifting of more than 10 pounds or back twisting of any nature (roll like a log when turning in bed). 4. You may ride in a car for 20-30 minutes at a time. No driving until after your first visit with your doctor. 5. Frequent changes of position and restricting sitting to 30 minutes at a time will help limit the amount of back spasms and stiffness you may experience. 6. You may discontinue the use of ambulatory aids (cane, crutches, etc.) once your strength and confidence allow. 7. You may managing cognitive engineer the shower and let water strike your incision when you arrive home at least once daily. Do not take a tub bath, sit in a hot tub or go into a swimming pool until after your first recheck in the office. SPECIAL CARE INSTRUCTIONS: VERY IMPORTANT TO READ AND REVIEW A. Your surgical incision has been closed with a cosmetic suture under the skin that will dissolve in about 6 weeks. In 14 days, you can use a pair of clean scissors and cut the suture that is left outside of the skin at the ends of your incision. 1. The small skin tapes can be removed 7 days after surgery if they have not fallen off by that point. 2. You may keep the wound open to air as much as possible to promote healing after post-op day number 5 unless told otherwise by your doctor. 3. If you think the wound looks like it is becoming infected (redness or worsening drainage) and/or you are experiencing fever, chill or worsening back pain and muscle spasms, contact the office so that we may evaluate you as soon as possible. B. Complications are uncommon, but please contact us if you have any signs or symptoms of: 1. wound infection (fever higher than 102.5 degrees F, redness, separation of wound, drainage, or increasing pain from the incision) 2. blood clots in legs (pain, swelling, redness and warmth in legs) 3. urinary tract infection (fever higher than 102.5 degrees F, burning upon urination or increased frequency of urination) 4. nerve problems (inability to walk on your toes or heels, numbness, loss of bowel or bladder control) 5. any other symptoms that concern you C. Please call the office at if you have any concerns or questions about your operation or recovery. D. No smoking! Smoking drastically decreases the chance of a solid fusion. E. Do not take any anti-inflammatory medications (Indocin, Advil, Motrin, Aspirin, Naprosyn, etc.) as these may inhibit the chance of a solid fusion. Tylenol is okay to take for pain. MANAGING PAIN AFTER SPINAL SURGERY 1. Narcotic medication is intended for short-term use and will be provided for surgical pain. Surgical pain usually lasts for a period of 4-6 weeks. Narcotic medication includes Percocet, Vicodin, Darvocet, Tylenol #3 or Lortab. 2. Longer-term pain is more appropriately treated with non-narcotic medication such as Tylenol ES. 3. Muscle spasm is not appropriately treated with narcotics. Muscle relaxers such as Soma, Flexeril or Skelaxin can be used along with Tylenol ES. 4. Remember that we all live with some "aches and pains". This is not unusual or uncommon after an injury or as we get older. a. Back pain is expected and may include muscle spasms for 4 to 6 weeks after surgery. The pain should gradually improve. If the pain worsens for no apparent reason, please contact the office. b. Intermittent leg pain may also be experienced and should not be concerned about unless it worsens for no apparent reason. If so, please contact the office. 5. We will provide appropriate medication within the normal guidelines of their prescribed use. We will also be very cautious and aware of potential abuse and extended duration of patients' medication needs. a. Pain medications are for your comfort and to assist with sleep and rest so that the tissue can heal. They are not provided in order to return to normal activity and should not be used through the day. To do so or worsening pain at night can result from ongoing tissue damage and development of tolerance to the prescribed medicine. 6. Please allow 2-3 days to process refills. Prescriptions will not be mailed but must be picked up at the office. FOLLOW UP VISIT: Keep your scheduled follow-up appointment. Any questions, please call the office at . Prescriptions: New tramadol 50 mg Tablet 50 mg PO Q4H PRN (Reason: Pain, Moderate) Qty: 30 RF: 0 oxycodone 5 mg Tablet 5 mg PO Q4H PRN (Reason: Pain, Severe) Qty: 30 RF: 0 Continue atorvastatin 40 mg Tablet 20 mg PO PM RF: 0 oxybutynin chloride 10 mg Tablet Extended Release 24hr 10 mg PO QPM RF: 0 gabapentin 400 mg Capsule 400 mg PO TID RF: 0 amlodipine 5 mg Tablet 5 mg PO QAM RF: 0 lisinopril 10 mg Tablet 10 mg PO QAM RF: 0 glucosamine sulfate [Glucosamine] 500 mg Tablet 500 mg PO BID RF: 0 aspirin 81 mg Tablet,Delayed Release (Dr/Ec) 81 mg PO DAILY RF: 0 ferrous sulfate 325 mg (65 mg iron) Tablet 325 mg PO BID RF: 0 Stand-Alone Forms: [facility], Op[facility] Pain Management Discharge Orders: Discharge Order (Routine); Ordered 08/01/18 Ordered By: Anish De La Torre Admission Data Admit Date/Time: 07/29/18 15:17 Attending Provider: Anish D eLa Torre Admit Provider: Anish De La Torre Primary Care Provider: Ellie Hollingsworth Other Providers: Fadi Miller Manabendra Service: Surgical Services Other Interventions: Discharge Summary Assessment (RN) Last Done: 08/01/18 08:43
== END 2018-08-01 11:26 | disposition home or self-care (01) | DRG 454 ==
LOC: ASU 11:03 → 3E 15:17